=== PATIENT | male | born 1950 | race Caucasian/White ===

== ENCOUNTER → 2022-12-01 | Outpatient (CLI) | payer MEDICARE ==
[~2022-12-01] MED LIST: LIDOCAINE HCL 4% LTA SOL 4 ML VIAL ONE
== END | disposition home or self-care (01) ==
LOC: WHH 10:20
PROVIDERS: ATTEND Nurse Practitioner Family
DX: L97.822 Non-pressure chronic ulcer of other part of left lower leg with fat layer exposed (principal); L97.812 Non-pressure chronic ulcer of other part of right lower leg with fat layer exposed; I87.8 Other specified disorders of veins; Z98.890 Other specified postprocedural states; Z79.899 Other long term (current) drug therapy
CPT/HCPCS: G0463; A6248; A4450

== ENCOUNTER → 2023-01-19 | Outpatient (CLI) | payer MEDICARE | END | disposition home or self-care (01) | LOC: WHH 10:49 | PROVIDERS: ATTEND Nurse Practitioner Family | DX: L97.822 Non-pressure chronic ulcer of other part of left lower leg with fat layer exposed (principal); L97.812 Non-pressure chronic ulcer of other part of right lower leg with fat layer exposed; I87.8 Other specified disorders of veins; Z98.890 Other specified postprocedural states; Z79.899 Other long term (current) drug therapy | CPT/HCPCS: G0463 ==